=== PATIENT | male | born 1980 | race Caucasian/White ===

== ENCOUNTER 2017-04-05 07:16 | Day surgery (SDC) | payer OTHER ==
[~2017-04-05 07:16] MED LIST: Lactated Ringers 1,000 ML IV SCH; Sodium Chloride 0.9% 10 ML Syringe FLUSH PRN
[2017-04-05] MEDS ORDERED: Propofol 200 MG/20 ML SDV IV ONE (08:38)
[2017-04-05] MEDS ORDERED: Midazolam 1 MG/ML 2 ML SDV IV ONE (08:38)
[2017-04-05] MEDS ORDERED: Lidocaine 2% 100 MG/5 ML Syringe IVPUSH ONE (08:38)
--- NOTE | 2017-04-05 09:29 | PCM.OPNOTE ---
- General Post-Op/Procedure Note Date of Surgery/Procedure: 04/05/17 Operative Procedure(s): egd with bx Findings: gastritis fundic gland polyps Pre Op Diagnosis: epigastric abd pain Post-Op Diagnosis: gastritis. fundic gland polyps Primary Surgeon: Juan Kan Anesthesia Provider: Jill Lozada Pathology: stomach pylorus distal esophagus Complications: None Condition: Good Free Text/Narrative:: see dictation
[2017-04-05 10:09] VITALS: BP 103/59
--- NOTE | 2017-04-05 11:11 | OR ---
DATE OF OPERATION: 04/05/2017 SURGEON: Juan Kan MD PROCEDURE PERFORMED: Esophagogastroduodenoscopy with cold forceps biopsy. PREOPERATIVE DIAGNOSIS: Epigastric abdominal pain. POSTOPERATIVE DIAGNOSIS: Gastritis, fundic gland hyperplasia. INDICATIONS FOR PROCEDURE: This is a 36-year-old white male, who is referred with a finding of gallstones. However, on questioning the patient, he has epigastric discomfort and complaints consistent with gastritis and possibly esophagitis. He was offered and accepted an upper endoscopy as part of the workup for his pain. DESCRIPTION OF OPERATION: After an excellent IV sedation was administered, the bite block was inserted. Flexible endoscope was passed without difficulty down the patient's esophagus into the stomach. Stomach was insufflated. Scope was passed through the pylorus to second portion of duodenum and slowly withdrawn. The following findings were noted. Duodenum was unremarkable. Stomach at the area of pylorus, areas of inflammation, biopsies were taken. Stomach, mild gastritis was noted as well as some fundic gland hyperplasia. Biopsies were taken of this area as well. Several compliance representative dealer biopsies of the gastric polyps were taken. All submitted in one container. GE junction measured at 40 cm. Distal esophagus, mild erythema, biopsies were taken. The remainder of the esophagus was unremarkable. Stomach was deflated. Scope was removed. Patient tolerated the procedure well, was taken to recovery. /[id number] /MODL
== END 2017-04-05 09:55 | disposition home or self-care (01) ==
LOC: FB.SDS 07:16
PROVIDERS: ATTEND Surgery
DX: K29.50 Unspecified chronic gastritis without bleeding (principal); F41.9 Anxiety disorder, unspecified; F32.9 Major depressive disorder, single episode, unspecified; Z79.899 Other long term (current) drug therapy
CPT/HCPCS: 43239; 88305; 88342; J2250; J2704; J7120

== ENCOUNTER 2017-04-29 07:28 | Day surgery (SDC) | payer OTHER ==
[2017-04-29] MEDS ORDERED: cefOXitin 2 GM in Sodium Chloride 0.9% 100 ML IV ONE (08:30)
[2017-04-29] MEDS ORDERED: Promethazine 25 MG/ML SDV IV ONE (09:00)
[2017-04-29] MEDS ORDERED: Rocuronium 100 MG/10 ML MDV IV ONE (09:00)
[2017-04-29] MEDS ORDERED: Dexamethasone 4 MG/ML 5 ML MDV IVPUSH ONE (09:00)
[2017-04-29] MEDS ORDERED: Lactated Ringers 1,000 ML IV ONE (09:00)
[2017-04-29] MEDS ORDERED: fentaNYL 100 MCG/2 ML SDV IV ONE (09:00)
[2017-04-29] MEDS ORDERED: Ondansetron 4 MG/2 ML SDV IVPUSH ONE (09:00)
[2017-04-29] MEDS ORDERED: Midazolam 1 MG/ML 2 ML SDV IV ONE (09:00)
[2017-04-29] MEDS ORDERED: Neostigmine Methylsulfate 10 MG/10 ML MDV IVPUSH ONE (09:00)
[2017-04-29] MEDS ORDERED: HYDROmorphone 2 MG/ML SDV IV ONE (09:00)
[2017-04-29] MEDS ORDERED: Scopolamine 1.5 MG Transdermal Patch TOP ONE (09:00)
[2017-04-29] MEDS ORDERED: Succinylcholine 200 MG/10 ML MDV IV ONE (09:00)
[2017-04-29] MEDS ORDERED: Propofol 200 MG/20 ML SDV IV ONE (09:00)
[2017-04-29] MEDS ORDERED: Ketorolac 30 MG/ML SDV IVPUSH ONE (09:00)
[2017-04-29] MEDS ORDERED: Bupivacaine 0.5% 30 ML SDV ONE (09:43)
[2017-04-29] MEDS ORDERED: Lidocaine 1% with EPINEPHrine 1:100,000 20 ML MDV ONE (09:43)
[2017-04-29] MEDS ORDERED: Acetaminophen/HYDROcodone 325-5 MG Tab PO PRN (10:01)
--- NOTE | 2017-04-29 10:01 | PCM.OPNOTE ---
- General Post-Op/Procedure Note Date of Surgery/Procedure: 04/29/17 Operative Procedure(s): lap cholecystectomy Findings: gallbladder and stones fatty liver Pre Op Diagnosis: sx gallstones Post-Op Diagnosis: Same Anesthesia Technique: General ET Tube, Local (2 % lido with epi/0.5% buvipicaine ) Primary Surgeon: Juan Kan Anesthesia Provider: Homar Stevenson Pathology: gallbladder and contents EBL in mLs: 3 Complications: None Condition: Good Free Text/Narrative:: see dictation
[2017-04-29] MEDS ORDERED: fentaNYL 100 MCG/2 ML SDV IVPUSH PRN (10:21)
[2017-04-29] MEDS ORDERED: HYDROmorphone 2 MG/ML SDV IVPUSH PRN (10:21)
[2017-04-29] MEDS ORDERED: Lactated Ringers 1,000 ML IV SCH (10:30)
[2017-04-29 13:25] VITALS: BP 111/62
--- NOTE | 2017-04-29 14:11 | OR ---
DATE OF OPERATION: 04/29/2017 SURGEON: Juan Kan MD PROCEDURE PERFORMED: Laparoscopic cholecystectomy. PREOPERATIVE DIAGNOSIS: Symptomatic cholelithiasis. POSTOPERATIVE DIAGNOSES: Symptomatic cholelithiasis and fatty liver. INDICATIONS: This is a 37-year-old white male who is referred with a history of some epigastric discomfort. He initially underwent an endoscopy and was noted to have some gastritis, treatment of this condition, that was demonstrated by an EGD, and did not result in relief of his symptoms, which was basically nausea and vomiting. He did have an ultrasound, which demonstrated cholelithiasis, and so he was offered and accepted a laparoscopic cholecystectomy. FINDINGS: 8 mL of a 1:1 mixture of 1% lidocaine with epinephrine and 0.5% bupivacaine was used to infiltrate our trocar sites. Gallbladder and contents were submitted for specimen and fatty liver infiltrate was also identified. DESCRIPTION OF PROCEDURE: After an excellent general anesthetic was administered, the patient was prepped and draped in the usual sterile manner. Local was then injected in the lower aspect of the patient's abdomen below the umbilicus. A small vertical midline incision was carried out using a #15 scalpel blade. Blunt dissection was carried out exposing the midline fascia and 2 stay sutures were placed on either side of the midline, which was then elevated. An incision was then made through the fascia and the abdominal cavity was entered. After careful digital palpation to ensure no adhesions, a 10.5-mm Alvin trocar was inserted into the patient's abdomen. The patient was then placed in reverse Trendelenburg with an airplane towards the left. Under direct visualization, three 5-mm ports were placed, one in the midline epigastrium and two below the right costal margin. This was done by injecting more local and making a stab incision and inserting our trocars. The gallbladder was grasped and retracted in a cephalad fashion. The infundibulum was grasped and retracted in a cephalad fashion. Blunt dissection was carried out exposing the cystic duct and the cystic artery. Two clips were placed proximally on the cystic duct and one distally, and the duct was transected. Two clips were placed proximally on the cystic artery and one was transected. L-Hook cautery dissection was then carried out and approximately 1 cm beyond the cystic artery, there appeared to be another branch of the cystic artery. This was clamped as well. I do feel like a critical view was felt to have been obtained prior to transection of all the vessels. This did have a pulsatile appearance of an artery that was going up on the gallbladder wall itself. The gallbladder was dissected free from the gallbladder fossa. There was some mild oozing, and this was more secondary to what appeared to be fatty infiltrate throughout both lobes of the liver. This was controlled with electrocautery. The specimen was passed into the specimen bag and delivered out through the umbilical port. The area was irrigated until clear. After assuring excellent hemostasis, the ports were removed. The midline fascial defect was closed with a [id number] 0 Vicryl and 2 stay sutures were placed on each other. The skin was closed with interrupted subcu 4- 0 Vicryl. Needle, sponge, and instrument counts were reported as correct. The patient was taken to recovery room in good condition. /[id number] /MODL
== END 2017-04-29 13:30 | disposition home or self-care (01) ==
LOC: FB.SDS 07:28
PROVIDERS: ATTEND Surgery
DX: K80.10 Calculus of gallbladder with chronic cholecystitis without obstruction (principal); F41.9 Anxiety disorder, unspecified; F32.9 Major depressive disorder, single episode, unspecified; Z79.899 Other long term (current) drug therapy
CPT/HCPCS: 47562; 88304; A9270; J0330; J0694; J1100; J1170; J1885; J2250; J2405; J2550; J2704; J2710; J3010; J7030; J7120

== ENCOUNTER 2024-09-24 06:13 | Day surgery (SDC) | payer OTHER ==
[2024-09-24] MEDS ORDERED: Propofol 200 MG/20 ML SDV IV ONE (06:14)
[2024-09-24] MEDS ORDERED: Lidocaine 2% 100 MG/5 ML Syringe IVPUSH ONE (06:14)
[2024-09-24] MEDS ORDERED: Ketamine 500 mg/10 ML MDV IV ONE (06:14)
[2024-09-24] MEDS ORDERED: Midazolam 1 MG/ML 2 ML SDV IV ONE (06:14)
[2024-09-24] MEDS ORDERED: Sodium Chloride 0.9% 10 ML Syringe FLUSH PRN (06:15)
[2024-09-24] MEDS: Lactated Ringers 1,000 ML IV SCH (07:17)
[2024-09-24] MEDS: Simethicone Drops 40 MG/0.6 ML 30 ML Bottle ONE (07:31)
[2024-09-24 09:14] VITALS: BP 103/69; PULSE 67
== END 2024-09-24 09:06 | disposition home or self-care (01) ==
LOC: FB.SDS 06:13
PROVIDERS: ATTEND Surgery
DX: Z12.11 Encounter for screening for malignant neoplasm of colon (principal); Q43.8 Other specified congenital malformations of intestine; E66.9 Obesity, unspecified; Z68.35 Body mass index [BMI] 35.0-35.9, adult; Z79.899 Other long term (current) drug therapy
CPT/HCPCS: A9270-GY; J2250; J2704; J3490; J7120